=== PATIENT | female | born 1985 | race Caucasian/White ===

== ENCOUNTER 2017-03-06 22:06 | Emergency (ER) | payer SELFPAY ==
[2017-03-06 22:15] VITALS: BP 118/60; BMI 38.5
--- NOTE | 2017-03-07 00:27 | DR.GENAD ---
HPI - PCP Primary Care Physician: NFD - Complaint/Symptoms Chief Complaint Doctors Comments: Patient states she has a UTI and she gets one about every 3-4 months. She has been having dysuria but denies fever, chills, nausea, vomiting,a cold, cough, hematuria. States she does not have a local doctor and she has not seen a urologist because she does not have any insurance. states her periods has been regular and she has and IUD. She is unsure of the name of the last antibiotic she took but states she is allergic to sulfa. She has been having nocturia, fequency pressure in the lower part of her abdomen. Chief Complaint:: UTI; CHRONIC UTI'S; LAST TREATED FOR UTI 2-3 WEEKS AGO; BURNING UPON URINATION; FEEL LIKE BLADDER IS ALWAYS FULL Self Treatment fo Chief Complaint: NO TREATMENT - Nurses notes reviewed Nurses Notes Review: Yes - Source History Provided: Patient - Mode of Arrival Mode of Arrival: Ambulatory - Timing Onset of Chief Complaint: 03/06/17 Came on: Gradually - Duration Duration: Constant How lon Duration: Days - Location Location: lower abdominal pressure - Severity Severity: Mild - Modifying Factors Worsens:: urinating Improves:: nothing PMH - PMH Past Medical History: No Past Surgical History: No Surgical History: , Tonsillectomy - Family History History of Family Medical Conditions: No Family Medical History: Diabetes Mellitus, Cancer, ID, Coronary Artery Disease, Hypertension - Social History Does patient currently use any type of tobacco product: No Have you used tobacco products in the last 12 months: No Type of Tobacco Use: None Alcohol Use: None Do you use any recreational Drugs:: No Lives With: Spouse Lives Where: Home - infectious screening In the last 2 months have you had wt loss of >10#?: NO Have you had fever, night sweats or hemotysis?: No Have you traveled outside the country in the last 6 months?: No Isolation: Standard ROS - Review of Systems Constitutional: No Symptoms Reported. negative: See HPI, Chills, Diaphoresis, Fever, Malaise, Weakness, Irritable, Fatigue, Loss of Appetite, Other Eyes: No Symptoms Reported ENTM: No Symptoms Reported. negative: See HPI, Ear Pain, Ear Discharge, Pulling on Ears, Hearing Loss, Nose Pain, Nose Discharge, Epistaxis, Nose Congestion, Mouth Pain, Mouth Swelling, Loose Teeth, Drooling, Throat Pain, Throat Swelling, Ear Foreign Body Respiratoy: No Symptoms Reported. negative: See HPI, Productive Cough, Non- Productive Cough, Moist Cough, Dry Cough, Hacking Cough, Barking Cough, Brassy Cough, Orthopnea, Short of Breath, Stridor, Wheezing, Hemoptysis, Other Cardiovascular: No Symptoms Reported. negative: See HPI, Chest Pain, Edema, Palpitations, Syncope, Cyanosis, Skin Mottling, Other Gastrointestinal/Abdominal: No Symptoms Reported, Abdominal Pain (lower abdominal pain) Genitourinary: Dysuria, Frequency, Pain. negative: No Symptoms Reported, See HPI, Discharge, Hematuria, Bleeding, Other Neurological: No Symptoms Reported Musculoskeletal: No Symptoms Reported Integumentary: No Symptoms Reported Hematologic/Lymphatic: No Symptoms Reported Endocrine: No Symptoms Reported Psychiatric: No Symptoms Reported PE - Vital Signs Vitals: Temperature 98.4 F Pulse Rate 80 Respiratory Rate 22 Blood Pressure 118/60 O2 Sat by Pulse Oximetry 99 - General Limitations: No Limitations General Appearance: Alert, In No Apparent Distress - Head Head Exam: Normal Inspection, Atraumatic, Normocephalic - Eyes Eye exam: Normal Appearance, PERRL, EOMI. negative: Scleral Icterus, Conjunctival Injection, Nystagmus, Miosis, Mydrasis, Periorbital Swelling, Periorbital Tenderness, Other - ENT ENT Exam: Normal Exam, Normal Oropharynx, Normal External Ear Exam, Mucous Membranes Moist, TM's Normal Bilaterally External Ear Exam: Normal External Inspection TM/Canal Exam: Bilateral Normal Nose Exam: Normal Nose Exam Mouth Exam: Normal Inspection. negative: Drooling, Trismus, Lip Swelling, Tongue Elevation, Tongue Swelling, Laceration, Other Throat Exam: Normal Inspection. negative: Tonsillar Erythema, Tonsillomegaly, Tonsillar Exudate, R Peritonsillar Mass, L Peritonsillar Mass, Muffled Voice, Other - Neck Neck Exam: Normal Inspection, Full ROM, Trachea Midline. negative: Tenderness, Meningismus, Lymphadenopathy, Thyromegaly, Other - Chest Chest Inspection: Normal Inspection, Symmetric Chest Wall Rise. negative: Tenderness, Rash, Abscess, Other - Respiratory Respiratory Exam: Normal Lung Sounds Bilat Respiratory Exam: Bilateral Clear to Auscultation - Cardiovascular Cardiovascular Exam: Regular Rate, Normal Rhythm, Normal Heart Sounds - Abdominal Exam Abdominal Exam: Normal Inspection, Normal Bowel Sounds, Soft Abdominal Tenderness: Suprapubic, Mild - Extremities Extremities Exam: Normal Inspection, Full ROM, Normal Capillary Refill. negative: Tenderness, Edema, Joint Swelling, Calf Tenderness, Other - Back Back Exam: Normal Inspection, Full ROM - Neurologic Neurological Exam: Alert, Oriented X3, CN II-XII Intact, Normal Gait, Reflexes Normal - Psychiatric Psychiatric Exam: Normal Affect, Normal Mood. negative: Depressed, Agitated, Anxious, Flat Affect, Manic, Homicidal Ideation, Suicidal Ideation, Other - Skin Skin Exam: Warm, Dry, Intact, Normal Color ROR - Labs Reviewed Laboratory Results Reviewed?: Yes (all lab results reviewed and discussed with patient.) Laboratory: Specimen Type Clean catch urine 03/07/17 00: Urine Color Yellow (YELLOW) 03/07/17: Urine Appearance Slightly hazy (CLEAR) 03/07/17 00: Urine pH 5.0 (5.0 - 8.0) 03/07/17 00: Ur Specific [place] 1.025 (1.000-1.030) 03/07/17 00: Urine Protein 2+ (NEGATIVE) 03/07/17 00: Urine Glucose (UA) Negative (NEGATIVE) 03/07/17 00: Urine Ketones Negative (NEGATIVE) 03/07/17 00: Urine Occult Blood 4+ (NEGATIVE) 03/07/17 00: Urine Nitrite Negative (NEGATIVE) 03/07/17 00: Urine Bilirubin Negative (NEGATIVE) 03/07/17 00: Urine Urobilinogen Normal (NORMAL) 03/07/17 00: Ur Leukocyte Esterase 2+ (NEGATIVE) 03/07/17 00: Urine RBC 15-20 /HPF (NEGATIVE) 03/07/17 00:26 Urine WBC 30-40 /HPF (NEGATIVE) 03/07/17 00:26 Ur Squamous Epith Cells Few /HPF (NEGATIVE) 03/07/17 00: Urine Bacteria Trace /HPF (NEGATIVE) 03/07/17 00: Ur Culture Indicated? Yes/culture set up 03/07/17 00: Urine Opiates Screen Negative (NEG=<300) 03/07/17 00: Urine Methadone Screen Negative (NEG=<300) 03/07/17 00: Ur Barbiturates Screen Negative (NEG=<200) 03/07/17 00:26 Ur Phencyclidine Scrn Negative (NEG=<25) 03/07/17 00:26 Ur Amphetamines Screen Negative (NEG=<1000) 03/07/17 00:26 U Benzodiazepines Scrn Negative (NEG=<200) 03/07/17 00:26 Urine Cocaine Screen Negative (NEG=<300) 03/07/17 00:26 U Marijuana (THC) Screen Negative (NEG=<50) 03/07/17 00:26 - Diagnosis Discharge Problem: Recurrent urinary tract infection, Cystitis - Discharge Plan Disposition: HOME, SELF-CARE Condition: Stable Prescriptions: Nitrofurantoin Macro [Macrobid Cap 100 mg Ext Rel] 100 mg PO BID #20 cap Phenazopyridine HCl [Pyridium] 200 mg PO BID PRN #10 tablet PRN Reason: - Follow ups/Referrals Follow ups/Referrals: NFD,None [Primary Care Provider] - 3 days PATRIC LAROSE [STAFF PHYSICIAN] - 3 days - Instructions Instructions: Urinary Tract Infection, Adult
[2017-03-07] MEDS ORDERED: PYRIDIUM PO STA (00:32)
[2017-03-07] MEDS ORDERED: LEVAQUIN TAB 500 MG PO STA (00:32)
[2017-03-07 00:47] LABS: BILIRUBIN,URINE NEGATIVE (NEGATIVE); BLOOD/HEMOGLOBIN,URINE 4+ (NEGATIVE); GLUCOSE, URINE NEGATIVE (NEGATIVE); KETONES,URINE NEGATIVE (NEGATIVE); LEUKOCYTE ESTERASE ,URINE 2+ (NEGATIVE); NITRITES,URINE NEGATIVE (NEGATIVE); PROTEIN,URINE 2+ (NEGATIVE); UROBILINOGEN,URINE NORMAL (NORMAL)
[2017-03-07] MEDS ORDERED: PYRIDIUM PO ONE (00:58)
[2017-03-07] MEDS ORDERED: LEVAQUIN TAB 500 MG ONE (00:58)
[2017-03-07 01:10] LABS: APPEARANCE,URINE SLIGHTLY HAZY (CLEAR); COLOR,URINE YELLOW (YELLOW)
[2017-03-07 01:11] LABS: BACTERIA,URINE TRACE /HPF (NEGATIVE); RBC,URINE 15-20 /HPF (NEGATIVE); SQUAMOUS EPITHELIAL CELL,UR FEW /HPF (NEGATIVE)
== END 2017-03-07 01:36 | disposition home or self-care (01) ==
LOC: ER 22:29
DX: N39.0 Urinary tract infection, site not specified (principal); N30.90 Cystitis, unspecified without hematuria
CPT/HCPCS: 80307; 81001; 87086; 99282; 99283; G0434